=== PATIENT | male | born 1960 | race Caucasian/White ===

== ENCOUNTER 2019-08-27 22:24 | Emergency (ER) | payer BC ==
[2019-08-27] MEDS ORDERED: Nitrostat 0.4 MG (ED) SL ONE ×2 (22:25→22:37)
[2019-08-27] MEDS ORDERED: Sodium Chloride 0.9% 1000 ML 1,000 ML IV SCH (22:30)
[2019-08-27] MEDS ORDERED: Sodium Chloride 0.9% 1000 ML 1,000 ML ONE (22:40)
[2019-08-27] MEDS ORDERED: LOPRESSOR 5 MG/5 ML INJECTION IV ONE ×3 (22:58→23:47)
[2019-08-27] MEDS ORDERED: NITRO-BID 2% UD PACKETS TOP ONE (22:58)
--- NOTE | 2019-08-27 22:58 | ERPHSYRPT ---
- History of Present Illness Time Seen by Provider: 08/27/19 22:55 Historian: patient Exam Limitations: no limitations Patient Subjective Stated Complaint: pt states, "I was sitting on the couch and chest pain/tightness occured. I got up and walked around, took my b/p which was high 194/130." Triage Nursing Assessment: pt ambulated to rm 3, alert and oriented, pt's at bedside. Pt c/o chest pain up to lt shoulder. Pt states, "My pain is better than it was at home". Lungs clear, heart tones reg, abd lg/obese with active bs x4 quad, nontender. Pt c/o tightness in the chest. Physician History: pt states, "I was sitting on the couch and chest pain/tightness occured. I got up and walked around, took my b/p which was high 194/130." Timing/Duration: today Activities at Onset: none Quality: tightness Location: substernal, central Chest Pain Radiation: arm Severity of Pain-Max: moderate Severity of Pain-Current: mild Modifying Factors: Improves With: aspirin Prior Chest Pain/Cardiac Workup: no prior chest pain Nitro Today/Relief: no nitro taken today Aspirin Treatment Today: 81 mg x 2 Allergies/Adverse Reactions: latex Adverse Reaction (Verified 08/27/19 22:42) Home Medications: Levothyroxine Sodium 50 mcg PO DAILY 08/27/19 [History] Metformin HCl 500 mg [Glucophage 500 MG] 500 mg PO DAILY 08/27/19 [History ] Tramadol HCl 50 mg PO [id number] PRN 08/27/19 [History] Hx Tetanus, Diphtheria Vaccination/Date Given: Yes Hx Influenza Vaccination/Date Given: No Hx Pneumococcal Vaccination/Date Given: No Immunizations Up to Date: Yes - Review of Systems Constitutional: No Fever, No Chills Eyes: No Symptoms Ears, Nose, & Throat: No Symptoms Respiratory: No Cough, No Dyspnea Cardiac: Chest Pain, No Edema, No Syncope Abdominal/Gastrointestinal: No Abdominal Pain, No Nausea, No Vomiting, No Diarrhea Genitourinary Symptoms: No Dysuria Musculoskeletal: No Back Pain, No Neck Pain Skin: No Rash Neurological: No Dizziness, No Focal Weakness, No Sensory Changes Psychological: No Symptoms Endocrine: No Symptoms All Other Systems: Reviewed and Negative - Past Medical History Pertinent Past Medical History: Yes Neurological History: No Pertinent History ENT History: No Pertinent History Cardiac History: No Pertinent History Respiratory History: No Pertinent History Endocrine Medical History: Diabetes Type II, Hypoglycemia Musculoskeletal History: Arthritis, Fractures GI Medical History: Gallbladder Disease History: No Pertinent History Psycho-Social History: Depression Male Reproductive Disorders: No Pertinent History Other Medical History: fx lt hip, gallstone - Past Surgical History Past Surgical History: Yes Neuro Surgical History: No Pertinent History Cardiac: No Pertinent History Respiratory: No Pertinent History Gastrointestinal: No Pertinent History Genitourinary: No Pertinent History Musculoskeletal: Orthopedic Surgery Male Surgical History: No Pertinent History Other Surgical History: rt carpal tunnel release. lt hip replacement - Social History Smoking Status: Never smoker Exposure to second hand smoke: Yes Drug Use: none Patient Lives Alone: No - Nursing Vital Signs Nursing Vital Signs: Initial Vital Signs Temperature 98.0 F 08/27/19 22:24 Pulse Rate 92 H 08/27/19 22:24 Respiratory Rate 19 08/27/19 22:24 Blood Pressure 170/108 08/27/19 22:24 O2 Sat by Pulse Oximetry 97 08/27/19 22:24 Pain Scale Pain Intensity 3 - Physical Exam General Appearance: no apparent distress, alert Eye Exam: PERRL/EOMI, eyes nml inspection Ears, Nose, Throat Exam: normal ENT inspection, moist mucous membranes Neck Exam: normal inspection, non-tender, supple, full range of motion Respiratory Exam: normal breath sounds, lungs clear, No respiratory distress Cardiovascular Exam: regular rate/rhythm, normal heart sounds Gastrointestinal/Abdomen Exam: soft, No tenderness, No mass Back Exam: normal inspection, No CVA tenderness, No vertebral tenderness Extremity Exam: normal inspection, normal range of motion Neurologic Exam: alert, oriented x 3, cooperative, normal mood/affect, sensation nml, No motor deficits Skin Exam: normal color, warm, dry SpO2: 97 - Course Nursing assessment & vital signs reviewed: Yes EKG Interpreted by Me: Sinus Rhythm Rhythm Strip: Normal Sinus Rhythm - Radiology Exams Chest X-ray Interpretation: Reviewed by me, Negative Ordered Tests: Active Orders 24 hr Category Date Time Status Surface Water Technician STAT Care 08/27/19 22:26 Active EKG-ER Only STAT Care 08/27/19 22:25 Active IV Insertion STAT Care 08/27/19 22:36 Active CHEST 1 VIEW (PORTABLE) Stat Exams 08/27/19 22:25 Taken CBC W DIFF Stat Lab 08/27/19 22:58 Completed CMP Stat Lab 08/27/19 22:58 Completed NT PRO BNP Stat Lab 08/27/19 22:58 Completed TROPONIN Q3H Lab 08/27/19 22:58 Completed TROPONIN Q3H Lab 08/28/19 01:30 Ordered TROPONIN Q3H Lab 08/28/19 04:30 Ordered TROPONIN Q3H Lab 08/28/19 07:30 Ordered TROPONIN Q3H Lab 08/28/19 10:30 Ordered Medication Summary Generic Name Dose Route Start Last Admin Trade Name Freq PRN Reason Stop Dose Admin Sodium Chloride 1,000 mls @ 50 mls/hr 08/27/19 22:30 08/27/19 22:45 Sodium Chloride 0.9% 1000 Ml IV 09/26/19 22:29 50 mls/hr .Q20H ERNA Administration Discontinued Medications Generic Name Dose Route Start Last Admin Trade Name Freq PRN Reason Stop Dose Admin Metoprolol Tartrate 2.5 mg 08/27/19 22:58 08/27/19 23:38 Lopressor 5 Mg/5 Ml Injection IV 08/27/19 22:59 2.5 mg STAT ONE Administration Metoprolol Tartrate Confirm 08/27/19 23:33 Lopressor 5 Mg/5 Ml Injection Administered 08/27/19 23:34 Dose 5 mg IV .STK-MED ONE Morphine Sulfate 4 mg 08/27/19 23:22 08/27/19 23:39 Morphine Sulfate 4 Mg Inj IV 08/27/19 23:23 4 mg STAT ONE Administration Morphine Sulfate Confirm 08/27/19 23:33 Morphine Sulfate 4 Mg Inj Administered 08/27/19 23:34 Dose 4 mg .ROUTE .STK-MED ONE Nitroglycerin 0.4 mg 08/27/19 22:25 08/27/19 22:39 Nitrostat 0.4 Mg (Ed) SL 08/27/19 22:26 0.4 mg STAT ONE Administration Nitroglycerin Confirm 08/27/19 22:37 Nitrostat 0.4 Mg (Ed) Administered 08/27/19 22:38 Dose 0.4 mg SL .STK-MED ONE Nitroglycerin 1 gm 08/27/19 22:58 08/27/19 23:34 Nitro-Bid 2% Ud Packets TOP 08/27/19 22:59 1 gm STAT ONE Administration Nitroglycerin Confirm 08/27/19 23:05 Nitro-Bid 2% Ud Packets Administered 08/27/19 23:06 Dose 1 gm .ROUTE .STK-MED ONE Nitroglycerin Confirm 08/27/19 23:33 Nitro-Bid 2% Ud Packets Administered 08/27/19 23:34 Dose 1 gm .ROUTE .STK-MED ONE Lab/Rad Data: Laboratory Result Diagrams 08/27/19 22:58 08/27/19 22:58 Laboratory Results 08/27/19 08/27/19 08/27/19 Range/Units 22:58 22:58 22:58 WBC 9.2 (4.0-10.5) K/mm3 RBC 4.72 (4.1-5.6) M/mm3 Hgb 15.0 (12.5-18.0) gm/dl Hct 45.7 (42-50) % MCV 96.8 (78-100) fl MCH 31.8 (26-32) pg MCHC 32.8 (32-36) g/dl RDW 13.2 (11.5-14.0) % Plt Count 279 (150-450) K/mm3 MPV 9.2 (6-9.5) fl Gran % 50.3 (36.0-66.0) % Eos # (Auto) 0.42 (0-0.5) Absolute Lymphs (auto) 2.88 (1.0-4.6) Absolute Monos (auto) 1.23 (0.0-1.3) Lymphocytes % 31.3 (24.0-44.0) % Monocytes % 13.4 H (0.0-12.0) % Eosinophils % 4.6 (0.00-5.0) % Basophils % 0.4 (0.0-0.4) % Absolute Granulocytes 4.64 (1.4-6.9) Basophils # 0.04 (0-0.4) Sodium 141 (137-145) mmol/L Potassium 4.4 (3.5-5.1) mmol/L Chloride 104 (98-107) mmol/L Carbon Dioxide 29 (22-30) mmol/L Anion Gap 11.3 (5-15) MEQ/L BUN 20 (9-20) mg/dL Creatinine 0.90 (0.66-1.25) mg/dL Estimated GFR > 60.0 ML/MIN Glucose 144 H (74-106) mg/dL Calcium 9.2 (8.4-10.2) mg/dL Total Bilirubin 0.20 (0.2-1.3) mg/dL AST 32 (17-59) U/L ALT 28 (0-50) U/L Alkaline Phosphatase 120 (38-126) U/L Troponin I 0.120 H* (0.000-0.034) ng/mL NT-Pro-B Natriuret Pep 41.8 (0-900) pg/mL Serum Total Protein 7.0 (6.3-8.2) g/dL Albumin 3.9 (3.5-5.0) g/dL - Progress Progress: improved Air Movement: good Blood Culture(s) Obtained: No Antibiotics given: No Discussed with Dr.: Other ([facility] ER Dr Rivas) Will see patient in: other Counseled pt/family regarding: lab results, diagnosis, need for follow-up, rad results - Departure Departure Disposition: Transfer ([facility] ER) Clinical Impression: Non-ST elevation AL (NSTEMI) Condition: Fair Critical Care Time: Yes Critical Care Time(excluding separately billable procedures): Critical 30-74 mins Referrals: MASON MCMAHON MD [Primary Care Provider] -
[2019-08-27 23:04] LABS: Absolute Neutrophil Ct (ANC) 4.64 (1.4-6.9); BASOPHIL % 0.4 % (0.0-0.4); Basophil (Absolute #) 0.04 (0-0.4); Eosinophil % 4.6 % (0.00-5.0); Eosinophil (Absolute #) 0.42 (0-0.5); Hematocrit 45.7 % (42-50); Lymphocyte (Absolute #) 2.88 (1.0-4.6); Lymphocytes % 31.3 % (24.0-44.0); Mean Cell Volume 96.8 fl (78-100); Mean Corpuscular Hemoglobin 31.8 pg (26-32); Mean Corpuscular Hgb Concent. 32.8 g/dl (32-36); Mean Platelet Volume 9.2 fl (6-9.5); Monocyte (Absolute #) 1.23 (0.0-1.3); Monocytes % 13.4 % (0.0-12.0); Neutrophil % 50.3 % (36.0-66.0); Platelet Count 279 K/mm3 (150-450); Red Blood Count 4.72 M/mm3 (4.1-5.6); Red Cell Distribution Width 13.2 % (11.5-14.0); White Blood Count 9.2 K/mm3 (4.0-10.5)
[2019-08-27] MEDS ORDERED: NITRO-BID 2% UD PACKETS ONE ×2 (23:05→23:33)
[2019-08-27] MEDS ORDERED: MORPHINE SULFATE 4 MG INJ IV ONE (23:22)
[2019-08-27 23:24] LABS: ALBUMIN 3.9 g/dL (3.5-5.0); ALKALINE PHOSPHATASE 120 U/L (38-126); ANION GAP 11.3 MEQ/L (5-15); BLOOD UREA NITROGEN 20 mg/dL (9-20); CHLORIDE 104 mmol/L (98-107); Calcium 9.2 mg/dL (8.4-10.2); Carbon Dioxide 29 mmol/L (22-30); Glucose 144 mg/dL (74-106); NT PRO BNP 41.8 pg/mL (0-900); Potassium 4.4 mmol/L (3.5-5.1); SGOT/AST 32 U/L (17-59); SGPT/ALT 28 U/L (0-50); SODIUM 141 mmol/L (137-145)
[2019-08-27] MEDS ORDERED: MORPHINE SULFATE 4 MG INJ ONE (23:33)
[2019-08-27] MEDS ORDERED: BABY ASPIRIN 81 MG CHEW PO ONE (23:47)
[2019-08-27] MEDS ORDERED: ENOXAPARIN SODIUM SQ ONE (23:47)
[2019-08-27 23:50] VITALS: O2SAT 97
[2019-08-28] MEDS ORDERED: ENOXAPARIN SODIUM SQ ONE (00:05)
[2019-08-28 00:53] VITALS: BP 146/94; PULSE 92
--- NOTE | 2019-08-28 07:36 | XRAY ---
Indication: Chest pain. Comparison: None Portable chest is clear. Heart and mediastinal structures within normal limits. Bony thorax intact with mild degenerative changes. Impression: Nonacute chest.
== END 2019-08-28 00:25 | disposition short-term general hospital (02) ==
LOC: ED 22:24
DX: I21.4 Non-ST elevation (NSTEMI) myocardial infarction (principal)
CPT/HCPCS: 36000; 36415; 71045; 80053; 83880; 84484; 85025; 93005; 93041; 96372; 96374; 96375; 96376; 99285; 99291; 99292; J1650; J2270; A9270-GY